=== PATIENT | male | born 1960 | race Caucasian/White ===

== ENCOUNTER → 2016-07-02 | Outpatient (CLI) | payer BC ==
[~2016-07-02] MED LIST: PRLSR20 PO; VNTHFA/IN INH
[2016-07-02 10:52] LABS: BLOOD UREA NITROGEN 14 mg/dl (7-18); BUN/CREATININE RATIO 18.3 (10-20); CALCIUM 8.9 mg/dl (8.5-10.1); CARBON DIOXIDE 27 mmol/L (21-32); CHLORIDE 104 mmol/L (98-107); CHOLESTEROL 189 mg/dl (0-200); CREATININE 0.76 mg/dl (0.60-1.40); GLUCOSE 83 mg/dl (70-99); POTASSIUM 4.6 mmol/L (3.5-5.1); SODIUM 140 mmol/L (136-145)
[2016-07-02 10:57] LABS: CHOLESTEROL/HDL RATIO 1.9; HDL CHOLESTEROL 101 mg/dl; LDL CHOLESTEROL CALCULATED 70 mg/dl; TRIGLYCERIDES 90 mg/dl (0-150); VERY LOW DENSITY LIPOPROT CALC 18 mg/dl
== END | disposition home or self-care (01) ==
LOC: C.LAB1850 09:30
PROVIDERS: ATTEND Internal Medicine
DX: Z13.220 Encounter for screening for lipoid disorders (principal); R73.03 Prediabetes; Z12.5 Encounter for screening for malignant neoplasm of prostate

== ENCOUNTER → 2016-10-28 | Outpatient (CLI) | payer OTHER | END | disposition home or self-care (01) | LOC: C.LAB 22:08 | DX: Z02.83 Encounter for blood-alcohol and blood-drug test (principal) ==

== ENCOUNTER → 2016-11-14 | Outpatient (CLI) | payer BC ==
[2016-11-14 09:49] LABS: CHOLESTEROL/HDL RATIO 1.9; PROSTATE SPECIFIC ANTIGEN 2.7 ng/ml (0.000-4.000)
== END | disposition home or self-care (01) ==
LOC: C.LAB1850 07:44
PROVIDERS: ATTEND Internal Medicine
DX: Z12.5 Encounter for screening for malignant neoplasm of prostate (principal); Z13.220 Encounter for screening for lipoid disorders

== ENCOUNTER → 2016-12-20 | Day surgery (SDC) | payer BC ==
[2016-12-11 07:45] VITALS: Ht 176.5 cm; Wt 59.1 kg
[~2016-12-20] VITALS: Ht 176.5 cm; Wt 59.1 kg
[~2016-12-20] MED LIST changes: +LIDOCAINE HCL 2% 2 ML VIAL (20MG/ML) ONE; +MIDAZOLAM HCL 1 MG/ML 2ML VIAL ONE; +ONDANSETRON INJ 2 MG/ML 2 ML VIAL ONE; -PRLSR20 PO; +PROPOFOL IV EMULSION 10 MG/ML 20 ML VIAL IV ONE; +SODIUM CHLORIDE 0.9% 500ML 500 ML IV ONE
--- NOTE | 2016-12-20 09:41 | Endo History and Physical ---
History & Physical Date of Service: Dec 20, 2016. Chief Complaint: screening,family history of colon cancer Referring Physician: Dr. Cristino Rod History of Present Illness 56 yo CM who presents for colonoscopy secondary to family history of colon cancer. Past Medical History Asthma, Other Past Surgical History Hx Cardiac Surgery: No Hx Internal Defibrillator: No Hx Pacemaker: No Hx Abdominal Surgery: Yes (INGUINAL HERNIA REPAIR) Hx of Implantable Prosthesis: No Hx Post-Op Nausea and Vomiting: No Hx Cancer Surgery: No Hx Thoracic Surgery: No Hx Orthopedic: No Hx Urinary Tract Surgery: No Family History Colon CA Social History Smoking Status: Current Every Day Smoker Hx Substance Use: No Hx Alcohol Use: Yes (6 PACK BEER DAILY) Allergies Coded Allergies: No Known Allergies (Verified , 12/20/16) Current Medications Reported Home Medications Medications Dose Route/Sig Max Daily Dose Days Date Category Ventolin Hfa (Albuterol) 200 Puffs/16682 Mcg Aers 2-4 Puffs INH Q6H PRN 12/11/16 Reported Vital Signs Weight (Kilograms): 59.09 Height (Feet): 5 Height (Inches): 9.5 Date Time Temp Pulse Resp B/P (MAP) Pulse Ox O2 Delivery O2 Flow Rate FiO2 12/20/16 09:35 36.9 92 16 150/91 (110) 99 Room Air Physical Exam General Appearance: WD/WN, no apparent distress Respiratory/Chest: Auscultation: breath sounds normal Cardiovascular: Heart Auscultation: RRR Abdomen: Bowel Sounds: normal Inspection & Palpation: soft, non-distended, no tenderness, guarding & rebound Assessment and Plan Assessment: 56 yo CM who presents for colonoscopy secondary to family history of colon cancer. Plan: Proceed with colonoscopy.
--- NOTE | 2016-12-20 11:02 | Anesthesiology Progress Note ---
Anesthesia Post Op Note Date & Time Dec 20, 2016 at 11:02 Vital Signs Pain Intensity: 0 Vital Signs Past 12 Hours Date Time Temp Pulse Resp B/P (MAP) Pulse Ox O2 Delivery O2 Flow Rate FiO2 12/20/16 09:35 36.9 92 16 150/91 (110) 99 Room Air Notes Mental Status: alert / awake / arousable, participated in evaluation Pt Amnestic to Procedure: Yes Nausea / Vomiting: adequately controlled Pain: adequately controlled Airway Patency, RR, SpO2: stable & adequate BP & HR: stable & adequate Hydration State: stable & adequate Anesthetic Complications: no major complications apparent
--- NOTE | 2016-12-20 11:03 | Discharge Instructions ---
Endoscopy Patient Instructions Date / Procedure(s) Performed Dec 20, 2016. Colonoscopy Allergy Information Coded Allergies: No Known Allergies (Verified , 12/20/16) Discharge Date / Findings Dec 20, 2016. Colon polyp Internal hemorrhoids Medication Instructions OK to resume all medications today as prescribed Reported Home Medications Medications Dose Route/Sig Max Daily Dose Days Date Category Ventolin Hfa (Albuterol) 200 Puffs/70414 Mcg Aers 2-4 Puffs INH Q6H PRN 12/11/16 Reported Provider Instructions Activity Restrictions - No exercising or heavy lifting for 24 hours. - Do not drink alcohol the day of the procedure. - Do not drive a car or operate machinery until the day after the procedure. - Do not make any important decisions or sign important papers in 24 hours after the procedure. Following Day: - Return to full activity which may include returning to work/school. Diet Start your diet with liquids and light foods (jello, soup, juice, toast). Then eat your usual diet if not nauseated. Treatment For Common After Affects For mild abdominal pain, bloating, or excessive gas: - Rest - Eat lightly - Lie on right side Follow-Up Information Follow-up with Dr. Cristino Rod as scheduled Anesthesia Information What You Should Know You have had a procedure that required some medicine to reduce anxiety and discomfort. This treatment is called moderate sedation. After receiving the treatment, you may be sleepy, but you will be able to breathe on your own. The effects of the treatment may last for several hours. Follow these instructions along with Activity/Diet recommendations noted above: * Do NOT do anything where dizziness or clumsiness would be dangerous. * Rest quietly at home today, then you can be up and about tomorrow. * Have a responsible person stay with you the rest of today. * You may have had an I.V. today. If so, you may take the dressing off later today. Recommendations Call your doctor if: * Trouble breathing * Continuous vomiting for more than 24 hours * Temperature above 101 degrees * Severe abdominal pain or bloating * Pain not relieved by pain medicine ordered * There is increased drainage or redness from any incision * A large amount of rectal bleeding greater than 2-3 tablespoons. (If you had a polyp/s removed or have hemorrhoids, a small amount of blood - from the rectum is to be expected.) * You have any unanswered questions or concerns. IN THE EVENT OF A SERIOUS EMERGENCY, GO TO THE NEAREST EMERGENCY ROOM Your discharge instructions were prepared by provider Andrez Arroyo. Patient Instructions Signature Page Gamaliel Vieira Patient (or Guardian) Signature/Date: I have read and understand the instructions given to me by my caregivers. Caregiver/RN/Doctor Signature/Date: The above-named patient and/or guardian has received patient instructions on this date. + Original Patient Signature Page (only) stays with chart. Please make copy for patient.
--- NOTE | 2016-12-20 11:05 | GI REPORT ---
Procedure Date: 12/20/2016 9:58 AM Procedure: Colonoscopy Indications: Family history of colon cancer in a first-degree relative Medicines: Monitored Anesthesia Care Complications: No immediate complications. Estimated Blood Loss: Estimated blood loss: none. Procedure: Pre-Anesthesia Assessment: - Prior to the procedure, a History and Physical was performed, and patient medications and allergies were reviewed. The patient's tolerance of previous anesthesia was also reviewed. The risks and benefits of the procedure and the sedation options and risks were discussed with the patient. All questions were answered, and informed consent was obtained. Prior Anticoagulants: The patient has taken no previous anticoagulant or antiplatelet agents. ASA Grade Assessment: II - A patient with mild systemic disease. After reviewing the risks and benefits, the patient was deemed in satisfactory condition to undergo the procedure. After I obtained informed consent, the scope was passed under direct vision. Throughout the procedure, the patient's blood pressure, pulse, and oxygen saturations were monitored continuously. The Scope was introduced through the anus and advanced to the terminal ileum. The colonoscopy was performed without difficulty. The patient tolerated the procedure well. The quality of the bowel preparation was good. The terminal ileum, ileocecal valve, appendiceal orifice, and rectum were photographed. Findings: The perianal and digital rectal examinations were normal. A 4 mm polyp was found in the ascending colon. The polyp was sessile. The polyp was removed with a cold snare. Resection and retrieval were complete. Multiple small-mouthed diverticula were found in the sigmoid colon. Non-bleeding internal hemorrhoids were found during retroflexion. The hemorrhoids were small. Impression: - One 4 mm polyp in the ascending colon, removed with a cold snare. Resected and retrieved. - Diverticulosis in the sigmoid colon. - Non-bleeding internal hemorrhoids. Recommendation: - Resume previous diet. - Continue present medications. - Repeat colonoscopy for surveillance based on pathology results. - Return to primary care physician as previously scheduled. Andrez Arroyo, DO 12/20/2016 11:05:35 AM This report has been signed electronically. Note Initiated On: 12/20/2016 9:58 AM I attest to the content of the Intraoperative Record and orders documented therein, exceptions below
[2016-12-20 11:26] VITALS: BP 156/96; PULSE 83; O2SAT 100
== END | disposition home or self-care (01) ==
LOC: C.GI 09:09
PROVIDERS: ATTEND Internal Medicine
DX: Z12.11 Encounter for screening for malignant neoplasm of colon (principal); Z80.0 Family history of malignant neoplasm of digestive organs; D12.2 Benign neoplasm of ascending colon; K57.30 Diverticulosis of large intestine without perforation or abscess without bleeding; K64.8 Other hemorrhoids; F17.200 Nicotine dependence, unspecified, uncomplicated; J45.909 Unspecified asthma, uncomplicated; K21.9 Gastro-esophageal reflux disease without esophagitis; H40.9 Unspecified glaucoma

== ENCOUNTER 2019-07-06 05:41 | Observation (INO) ==
--- NOTE | 2019-06-29 14:37 | Anesthesiology Consultation ---
Date of Service June 29, 2019 Assessment & Plan (1) Encounter for pre-operative examination: Heavy ETOH use: 6 pack beer/day at night, patient reports no morning ETOH use/no issue with being NPO AM DOS. Chart Review Chart Review: Acceptable Risk for Surgery and Patient NOT seen in Pre Admission Testing History Surgery Operation Date: 07/06/19 10:50 Proposed Procedures p Laparoscopic Robotic Assisted Radical Retropubic Prostatectomy, Possible Open, Possible Pelvic Lymph Node Dissection, Possible Suprapubic Tube Placement - Dr. López - Steve López MD s Robotic Laparoscopic Assist Right Inguinal Hernia Repair - Dr. Almaguer - Clyde Almaguer MD Height/Weight Height: 5 ft 10 in Weight: 58.06 kg Allergies Allergy/AdvReac Type Severity Reaction Status Date / Time No Known Allergies Allergy Verified 06/29/19 11:49 Medications Home Medications Medication Instructions Recorded Confirmed Last Taken pantoprazole 40 mg PO BID #60 tab 01/27/19 06/29/19 Unknown albuterol sulfate [Ventolin HFA] 2 puffs INH Q6H PRN 05/13/19 06/29/19 Unknown ephedrine-guaifenesin [Primatene 2 tab PO UD PRN 05/13/19 06/29/19 Unknown Asthma] Past Medical History Medical History Acid reflux mild Asthma stable Elevated PSA Esophageal thickening per records Glaucoma Hiatal hernia History of esophageal reflux (Inactive) Past Family History Family History Father Prostate cancer Colorectal cancer Family history of reaction to anesthesia father had stroke during surgery Mother Glaucoma Brother Heart disease Past Surgical History Surgical History History of colonoscopy History of esophagogastroduodenoscopy (EGD) History of left inguinal hernia repair Social History Smoking Status: Current every day smoker tobacco type: cigarettes Smoking cigarettes per day: 1 1/2 pk Do You Dip or Chew Tobacco: No Hx Alcohol Use: Yes Alcohol type: beer alcohol intake frequency: 3 or more drinks per day Alcohol Intake Frequency Comment: 6 pk per day Hx Substance Use: No substance use type: does not use Testing Laboratory Results 05/19/19 WBC: 9.43 H/H: 14.0/41.5 PLATELETS: 373 SODIUM: 137 POTASSIUM: 3.9 CHLORIDE: 105 CO2: 27 BUN: 13 CREATININE: 0.94 GLUCOSE: 96 Electrocardiogram Date: 05/19/19 Findings: + NSR @ (67bpm with short NE) Chest X-Ray Date: 05/19/19 Findings: + NAD
[2019-07-06] MEDS ORDERED: CEFAZOLIN 2000MG 2,000 MG/15 ML SYR IV SCH ×2 (06:00→12:45)
[2019-07-06] MEDS ORDERED: LR 15ML/HR IV SCH (06:00)
[2019-07-06] MEDS ORDERED: SUCCINYLCHOLINE CHLORIDE 20 MG/ML 10 ML VIAL ONE (06:26)
[2019-07-06] MEDS ORDERED: GLYCOPYRROLATE 0.2 MG/ML VIAL ONE (06:26)
[2019-07-06] MEDS ORDERED: ONDANSETRON INJ 2 MG/ML 2 ML VIAL ONE (06:26)
[2019-07-06] MEDS ORDERED: NEOSTIGMINE METHYLSULFATE 5 MG/5 ML SYR ONE (06:26)
[2019-07-06] MEDS ORDERED: LIDOCAINE HCL 2% 2 ML VIAL/AMP(20MG/ML) INFIL ONE (06:26)
[2019-07-06] MEDS ORDERED: fentaNYL citrate 100 MCG/2 ML VIAL ONE ×2 (06:26→08:03)
[2019-07-06] MEDS ORDERED: MIDAZOLAM HCL 1 MG/ML 2ML VIAL ONE (06:26)
[2019-07-06] MEDS ORDERED: ROCURONIUM BROMIDE 10 MG/ML 5 ML VIAL ONE ×7 (06:26→10:57)
[2019-07-06] MEDS ORDERED: PROPOFOL IV EMULSION 10 MG/ML 20 ML VIAL IV ONE (06:26)
--- NOTE | 2019-07-06 06:45 | History & Physical Bridge Note ---
Date of Service July 06, 2019 History & Physical Bridge Note I have examined the patient, reviewed the History & Physical and in the interval since the performance of the History & Physical I have noted the following changes of clinical significance: no changes noted
[2019-07-06] MEDS ORDERED: HYDROmorphone INJ 2 MG/ML SYR/VIAL IV PRN (07:06)
[2019-07-06] MEDS ORDERED: fentaNYL citrate 100 MCG/2 ML VIAL IV PRN (07:06)
[2019-07-06] MEDS ORDERED: ONDANSETRON INJ 2 MG/ML 2 ML VIAL IV PRN ×2 (07:06→12:33)
[2019-07-06] MEDS ORDERED: ATROPINE SULFATE 0.1 MG/ML 10ML SYR IV PRN (07:06)
[2019-07-06] MEDS ORDERED: ePHEDrine sulfate 50 MG/ML AMP IV PRN (07:06)
[2019-07-06] MEDS ORDERED: METOCLOPRAMIDE HCL INJ 5 MG/ML 2 ML VIAL IV PRN (07:06)
[2019-07-06] MEDS ORDERED: PROMETHAZINE HCL 12.5 MG in SODIUM CHLORIDE 0.9% 50 ML IV PRN (07:06)
[2019-07-06] MEDS ORDERED: BUPIVACAINE 0.5 % 5 MG/1 ML MPF 30ML VIAL ONE (07:08)
--- NOTE | 2019-07-06 07:19 | History & Physical Bridge Note ---
Date of Service July 06, 2019 History & Physical Bridge Note I have examined the patient, reviewed the History & Physical and in the interval since the performance of the History & Physical I have noted the following changes of clinical significance: no changes noted Pt with both prostate cancer and a symptomatic inguinal hernia. 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
--- NOTE | 2019-07-06 07:21 | History & Physical Report ---
Date of Service July 06, 2019 Assessment & Plan (1) Prostate cancer: Robotic prostatectomy and concurrent right inguinal hernia with Dr. Almaguer - questions answered (2) Right inguinal hernia: History of Present Illness Primary Care Provider: Cristino Rod MD Gl 4+3 prostate cancer, high volume, localized disease. Symptomatic right inguinal hernia - presenting now for definitive treatment of both the prostate cancer and the hernia Allergies Allergy/AdvReac Type Severity Reaction Status Date / Time No Known Allergies Allergy Verified 07/06/19 06:14 Home Medications Home Medications Medication Instructions Recorded Confirmed Type pantoprazole 40 mg PO BID #60 tab 01/27/19 07/06/19 Rx albuterol sulfate [Ventolin HFA] 2 puffs INH Q6H PRN 05/13/19 07/06/19 History ephedrine-guaifenesin [Primatene 2 tab PO UD PRN 05/13/19 07/06/19 History Asthma] Past Med/Surg History Medical History Acid reflux mild Asthma stable Elevated PSA Esophageal thickening per records Glaucoma Hiatal hernia History of esophageal reflux (Inactive) Surgical History History of colonoscopy History of esophagogastroduodenoscopy (EGD) History of left inguinal hernia repair Family History Father Prostate cancer Colorectal cancer Family history of reaction to anesthesia father had stroke during surgery Mother Glaucoma Brother Heart disease Social History Preferred Language: [place] Citizen Communication Ability: Effective Visual Impairment: No Limitations Hearing Ability: Normal Special Delivery Mail Carrier Required: No Beliefs That Will Affect Care: None marital status: Single Current Living Situation: Alone current occupational status: employed Other Information That Helps Us Care for You: No Feels Safe at Home: Yes Safety Concerns: Feels Safe At This Time Smoking Status: Current every day smoker Tobacco Type: cigarettes ; Cigarettes Per Day: 1 1/2 pk ; Do You Dip or Chew Tobacco: No ; Second Hand Exposure: No ; Tobacco Cessation Education Requested by Patient: No Hx Alcohol Use: Yes Alcohol type: beer Hx Substance Use: No Review of Systems All systems reviewed & are unremarkable except as noted in HPI & below Physical Exam Constitutional: well developed and well nourished Neck: neck nontender Respiratory: normal respiratory effort; no respiratory distress and does not use accessory muscles Cardiovascular: Rate/Rhythm: regular rate Vessels: radial pulses present Extremities: no edema Gastrointestinal (Abdomen): Inspection/Auscultation: abdomen normal to inspection Percussion/Palpation: abdomen soft; abdomen nontender and no guarding large right inguinal hernia Musculoskeletal: Head/Neck/Chest: normocephalic and head atraumatic Extremities: extremities normal to inspection Skin: no rashes and no lesions Trauma: no evidence of skin trauma Neurologic: awake; not obtunded Speech / Cognition: normal speech Motor/Sensory: no tremor Psychiatric: Orientation: alert and oriented x 3 Genitourinary: no CVA tenderness Lymphatic: no lymphadenopathy Results & Data Vital Signs (Past 12 Hours) Vital Signs Temp Pulse Resp BP Pulse Ox 07/06/19 06:17 37 C 75 18 153/96 H 96
[2019-07-06] MEDS ORDERED: HEPARIN SOD 5,000 UNIT/0.5 ML VIAL ONE (07:28)
[2019-07-06] MEDS ORDERED: HEPARIN SOD 5,000 UNIT/0.5 ML VIAL SQ ONE (07:45)
[2019-07-06] MEDS ORDERED: HYDROmorphone INJ 2 MG/ML SYR/VIAL ONE (08:11)
[2019-07-06] MEDS ORDERED: LABETALOL HCL IV 5 MG/ML 20ML IV ONE (09:04)
[2019-07-06] MEDS ORDERED: SURGICEL ABSORB HEMOSTAT 2IN X 14IN TOP ONE (10:18)
[2019-07-06] MEDS ORDERED: FLOSEAL HEMOSTATIC MATRIX 10ML TOP ONE (10:56)
[2019-07-06] MEDS ORDERED: ACETAMINOPHEN 325 MG TAB PO PRN (12:33)
--- NOTE | 2019-07-06 12:36 | Operative Report (OR) ---
DATE OF OPERATION: 07/06/2019 PREOPERATIVE DIAGNOSES: Right inguinal hernia and prostate cancer. POSTOPERATIVE DIAGNOSES: Right direct inguinal hernia and prostate cancer. PROCEDURE: For my part was laparoscopic robotic-assisted repair of right direct inguinal hernia. SURGEON: Clyde Almaguer MD. FINDINGS: The patient had a small to moderate sized direct inguinal hernia. There was a very tiny indirect component. Cord structures were normal. TECHNIQUE: The patient was to undergo a laparoscopic robotic-assisted prostatectomy as well as repair of the inguinal hernia. The patient was given a general anesthetic and the area was prepped and draped. Incisions and placement of the ports as well as docking of the robot was performed by Dr. López and he will dictate that portion. Once the robot was docked, I attended the console. The peritoneum was opened from the medial umbilical ligament working laterally towards the anterior superior iliac spine. I then worked posteriorly on the medial side, identifying the pubic tubercle and working for approximately 2 cm posterior to the pubic tubercle. I then carried the dissection laterally. The direct hernia sac was easily identified and away from the overlying transversalis fascia and was easily reduced around its entire circumference. I then worked laterally identifying the vessels as well as the vas deferens and then worked posteriorly, the vas deferens. The Y between the vas deferens and the vessels was easily identified. I then completed the lateral dissection working anterior to posterior. There were some additional peritoneal attachments over the vessels and the vas deferens that were carried posteriorly until there was adequate dissection and all of the spaces were identified. There was no evidence of a femoral hernia and the direct and indirect hernia spaces were free of hernia. There was no lipoma of the cord. A piece of 3D Max large sized mesh was then placed. It overlapped all of the potential hernia areas. It was secured with a 3-0 Vicryl to the Joseph's ligament and then 2 sites anteriorly, one medial and one lateral. The mesh was sitting nicely. The remainder of the prostatectomy procedure was then completed by Dr. López, and he will dictate that portion of the case. I attest to the content of the Intraoperative Record and any orders documented therein. Any exception s are noted below.
--- NOTE | 2019-07-06 12:54 | Operative Report ---
PG Post Operative Report Pre & Post Diagnosis Operation Date: 07/06/19 07:30 Pre-Op Diagnosis: Right Inguinal Hernia, Prostate Cancer Post-Op Diagnosis: Right Inguinal Hernia, Prostate Cancer I identified the patient and participated in the time-out.: Yes Procedure Operation Date: 07/06/19 07:30 Actual Procedures p Robotic Laparoscopic-Assisted Radical Retropubic Prostatectomy, Pelvic Lymph Node Dissection(Not Applicable) - Steve López MD s Robotic Right Laparoscopic-Assisted Inguinal Hernia Repair with Mesh(Right) - Clyde Almaguer MD Surgeon Boy López MD Mcat Instructor FARZANEH Mariano Estimated Blood Loss 105 (5ml for Rosina, 100ml for Rene) Findings Consistent with Post-Op Diagnosis Specimens 1. Periprostatic fat 2. Left obturator lymph nodes 3. Right obturator lymph nodes 4. Prostate and seminal vesicles Description of Procedure The patient was identified in the preoperative holding area, appropriate informed consents were reviewed and completed, and he was transported to the operating suite. Subcutaneous heparin was administered in the pre-operative holding area. Upon arrival in the operating suite, he received appropriate antibiotics and general anesthesia. He was positioned in dorsal lithotomy and he was prepped and draped in standard fashion. A Bauer catheter was inserted in the sterile field. A Veress needle was passed per umbilicus with uniform insufflation of the abdomen to 15mmHg. He was placed in steep Trendelenburg position. A periumbilical incision was then made to accommodate a 12mm Visiport with 10mm 0degree laparoscope. Inspection of the abdomen was carried out, and there was no evidence of traumatic entry or injury secondary to the Veress needle. After confirming a clear anterior abdominal wall, ports were subsequently placed in standard robotic prostatectomy fashion without incident. After docking the robot Dr. Almaguer joined the case, inspected the right inguinal hernia, incised the overlying peritoneum, and repaired the hernia with mesh. Details of the procedure as dictated by Dr. Almaguer, but there were no complications in the remainder of the case proceeded without difficulty. To begin my portion of the case I completed mobilization of the anterior peritoneum by incising the left medial umbilical ligament and the peritoneum just lateral to it to the medial aspect of the left internal ring. I carried this distally as far as the vas deferens and underneath the pubic arch circumferentially. I then exposed the prostate and endopelvic fascia. I removed the fat from the anterior surface of the prostate and passed off the table as a specimen labeled periprostatic fat. I opened the endopelvic fascia on the right from base to apex. I used care to avoid over thinning the puboprostatic ligaments. I expose the lateral aspect of the urethra in this area and preserved all lateral musculature including the levator and bj- sphincter complex. I performed the same procedure on the left. I then controlled the dorsal venous complex with a V lock suture. The lymph node dissection was then conducted. External iliac vessels were identified on the pelvic side wall. The packet of fat and lymphatic tissue that resides just under the iliac vein was elevated and off of the vein with a split and roll technique. The packet was dissected laterally to the circumflex vein and distally to the obturator nerve which was preserved. The proximal aspect of the packet was carried towards the bifurcation of the iliac vessels. A combination of monopolar and bipolar cautery were used to assist with control. Clips were placed at the proximal and distal aspects of the packet prior to transection. After completing the dissection on both sides, the packets were collected and passed off of the table as specimens labeled "obturator lymph nodes". My attention then returned to the prostate, with identification of the bladder neck aided by gentle traction on the Bauer catheter and lateral to medial pressure at the presumed level of the bladder neck with the robotic instruments. An anterior cystotomy was made, the Bauer balloon deflated and the catheter guided through the incision to allow anterior retraction. I attempted to preserve maximal bladder neck musculature as I circumferentially dissected around the bladder neck. After incision through the posterior aspect of the mucosa, the dissection was carried through detrusor muscle until the bilateral ampullae of the vasa were identified. I dissected both vasa before transecting them and using them to help elevate the SV's which were subsequently dissected entirely. I utilized the SV as an vasa to help anteriorly retract the prostate and create a posterior dissection. I first incised tenotomy's fascia and then carried a posterior dissection through tenotomy's fascia to the apex of the prostate. I began in the midline and carried this laterally until I encountered the neurovascular bundles. An incision in the lateral prostatic fascia was then made bilaterally to facilitate control of the vascular pedicles. The pedicles were each controlled with a series of Weck clips. The neurovascular bundles were preserved bilaterally. Of note, there was no adherence of the neurovascular bundle to the underlying prostatic tissue and an easy dissection was conducted. The apical attachments of the prostate were remaining at that stage. The DVC was divided with bipolar electrocautery. Hemostasis was excellent bj- prostatic tissue incised with sharp dissection and monopolar cautery. Maximal urethral length was preserved before dividing the urethra sharply. The prostate was entirely freed at that point, and collected in an EndoCatch bag before being moved out of the field of vision. A posterior reconstruction was completed utilizing a V lock suture. Hemostasis was confirmed and anastomosis of the bladder and urethra was completed utilizing a double armed V-Lock stitch. A new Bauer catheter was inserted and the anastomosis tested with irrigation. There was no evidence of leak. Before undocking the robot, I covered the previously placed inguinal hernia mesh with the peritoneum by repositioning the peritoneum against the anterior abdominal wall and utilizing a series of V lock sutures in running fashion to reapproximate the peritoneum. This entirely covered this mesh. The robot was undocked, the specimen extracted through expansion of the bj- umbilical camera port. The patient is quite thin and I was able to close all ports with a 0 Vicryl suture as the fascia was readily visible on all sites. This included a series of [id number] sutures placed through the umbilical extraction site. I then reapproximated the skin with 4-0 Monocryl subcuticular stitches. Half percent Marcaine was utilized infiltrated all incisions. Dermabond was placed on top of all incisions. The case was concluded. He was extubated and taken to the PACU in stable condition. There were no complications. Alaina De Jesus assisted throughout the case from incision to closure including the portion with Dr. Almaguer.. The case was concluded and the patient taken to the PACU in stable condition. I attest to the content of the Intraoperative Record and any orders documented therein. Any exceptions are noted below.
[2019-07-06] MEDS ORDERED: MoRPHine SULFATE 2 MG/ML CARP IV PRN ×2 (13:02)
[2019-07-06 13:14] LABS: Basophils # (auto) 0.03 K/uL (0-0.2); Basophils % (auto) 0.3 %; Eosinophils # (auto) 0.11 K/uL (0-0.5); Hemoglobin 14.5 g/dL (14.0-18.0); Immature Granulocytes # (auto) 0.03 K/uL (0.00-0.02); Immature Granulocytes % (auto) 0.3 %; Lymphocytes # (auto) 0.54 K/uL (1.2-3.4); Lymphocytes % (auto) 4.9 %; Mean Corpuscular Hemoglobin 32.2 pg (25-34); Mean Corpuscular Hgb Conc 33.7 g/dL (32-36); Mean Corpuscular Volume 95.6 fL (80-100); Mean Platelet Volume 8.4 fL (7.4-10.4); Monocytes # (auto) 0.72 K/uL (0.11-0.59); Monocytes % (auto) 6.6 %; Neutrophils # (auto) 9.48 K/uL (1.4-6.5); Neutrophils % (auto) 86.9 %; Platelet Count 298 K/uL (130-400); RDW Standard Deviation 45.7 fL (36.4-46.3); White Blood Count 10.91 K/uL (4.8-10.8)
[2019-07-06 13:31] LABS: BUN Creatinine Ratio 10.8 (10-20); Calcium 8.4 mg/dl (8.5-10.1); Creatinine Clr Calc Pharmacy 48.8 ml/min; Est GFR (African American) 68.6; Est GFR (Non-African American) 59.2
[2019-07-06] MEDS ORDERED: ALBUTEROL HFA 8 GM INHALER INH PRN (14:06)
[2019-07-06] MEDS: LACTATED RINGER'S 1,000 ML IV SCH ×2 (14:08→23:44)
--- NOTE | 2019-07-06 14:32 | Anesthesiology Progress Note ---
Date of Service July 06, 2019 Anesthesia Post Procedure Vital Signs Vital Signs: Temp Pulse Pulse Resp BP BP Pulse Ox 07/06/19 14:22 64 16 114/69 97 07/06/19 13:55 36.7 C 72 18 125/77 96 07/06/19 13:40 36.3 C L 68 12 134/78 98 07/06/19 13:30 58 L 12 155/93 H 96 07/06/19 13:20 72 20 157/93 H 94 07/06/19 13:10 59 L 13 148/80 H 100 07/06/19 13:00 75 20 179/106 H 100 07/06/19 12:51 35.8 C L 82 20 172/109 H 93 07/06/19 06:17 37 C 75 18 153/96 H 96 Pain Intensity Abdomen: Pain Intensity: 4 Transfer of Care Handoff Completed per policy Notes Mental Status: alert / awake / arousable and participated in evaluation Patient Amnestic to Procedure: Yes Nausea / Vomiting: adequately controlled Pain: adequately controlled Airway Patency, RR, SpO2: stable & adequate BP & HR: stable & adequate Hydration State: stable & adequate Anesthetic Complications: no major complications apparent
[2019-07-06] MEDS: CEFAZOLIN 2000MG 2,000 MG/15 ML SYR IV SCH ×2 (15:43→23:44)
[2019-07-06] MEDS: PANTOprazole 40 MG TAB PO SCH (20:15)
[2019-07-06] MEDS: HEPARIN SOD 5,000 UNIT/0.5 ML VIAL SQ SCH (20:23)
[2019-07-07 06:00] LABS: Basophils # (auto) 0.03 K/uL (0-0.2); Basophils % (auto) 0.3 %; Eosinophils # (auto) 0.06 K/uL (0-0.5); Eosinophils % (auto) 0.7 %; Hematocrit (blood only) 36.8 % (42-52); Hemoglobin 12.4 g/dL (14.0-18.0); Immature Granulocytes # (auto) 0.01 K/uL (0.00-0.02); Immature Granulocytes % (auto) 0.1 %; Lymphocytes # (auto) 1.07 K/uL (1.2-3.4); Lymphocytes % (auto) 11.7 %; Mean Corpuscular Hemoglobin 31.8 pg (25-34); Mean Corpuscular Hgb Conc 33.7 g/dL (32-36); Mean Corpuscular Volume 94.4 fL (80-100); Mean Platelet Volume 8.5 fL (7.4-10.4); Monocytes # (auto) 0.96 K/uL (0.11-0.59); Monocytes % (auto) 10.5 %; Neutrophils # (auto) 7.02 K/uL (1.4-6.5); Neutrophils % (auto) 76.7 %; Platelet Count 304 K/uL (130-400); RDW Standard Deviation 44.4 fL (36.4-46.3); White Blood Count 9.15 K/uL (4.8-10.8)
[2019-07-07] MEDS: LACTATED RINGER'S 1,000 ML IV SCH ×4 (06:26→23:46)
[2019-07-07 06:33] LABS: BUN Creatinine Ratio 12.2 (10-20); Calcium 8.6 mg/dl (8.5-10.1); Creatinine Clr Calc Pharmacy 57.6 ml/min; Est GFR (African American) 83.8; Est GFR (Non-African American) 72.3; Potassium 4.9 mmol/L (3.5-5.1)
[2019-07-07] MEDS: HYDROCODONE/ACETAMOPHEN 5/325MG TAB PO PRN ×2 (06:36→11:58)
[2019-07-07] MEDS: PANTOprazole 40 MG TAB PO SCH ×2 (08:36→21:02)
[2019-07-07] MEDS: HEPARIN SOD 5,000 UNIT/0.5 ML VIAL SQ SCH ×2 (08:36→21:03)
--- NOTE | 2019-07-07 09:50 | Urology Progress Note ---
Date of Service July 07, 2019 Assessment & Plan (1) Prostate cancer: Postop day #1 status post robotic prostatectomy and robotic right inguinal hernia repair Progressing appropriately Continue ambulation Hold on clear liquids for now advance later today or tomorrow He lives alone and is concerned about self-care after discharge, I have reassured him that we will keep an eye on him throughout the day today continue to monitor his labs, urine output, overall status before determining discharge homelikely tomorrow Subjective Recovering appropriately from his prostatectomy and right inguinal hernia repair yesterday He has been ambulatory His pain is tolerable His urine has cleared He feels well overall Review of Systems Review of Systems: All systems reviewed & are unremarkable except as noted in HPI & below Physical Exam Physical Exam: Incisions appropriate Urine clear No lower extremity edema No oxygen requirement Results & Data Vital Signs (Past 12 Hours) Vital Signs Temp Pulse Resp BP Pulse Ox 07/07/19 07:16 37.0 C 72 16 118/68 90 07/07/19 03:27 37.1 C 70 16 134/71 96 07/06/19 22:52 37.0 C 74 16 122/68 94 PG Care Time/CCT Total # of Minutes Spent Total Time Spent with Patient: Total time spent is greater than 50% in coordination of care (as documented) at patient's floor/unit and/or counseling patient: Coding Level of Care Code 09207 Subseq Hosp Care Lvl 2 Diagnoses Prostate cancer C61
[2019-07-07] MEDS: KETOROLAC TROMETHAMINE 15 MG/ML VIAL IV PRN ×2 (16:30→23:41)
[2019-07-08] MEDS: KETOROLAC TROMETHAMINE 15 MG/ML VIAL IV PRN (06:17)
--- NOTE | 2019-07-08 08:02 | Urology Progress Note ---
Date of Service July 08, 2019 Assessment & Plan (1) Prostate cancer: POD#2 s/p RALP and Robotic R inguinal hernia repair - doing well - advance diet - hopeful for d/c home later today if he continues to progress Subjective doing well tolerating clear liquids no nausea appropriate, expected pain ambulating Physical Exam Physical Exam: incisions appropriate ecchymosis over the pubic area - mild edema in the right inguinal region. urine clear Results & Data Vital Signs (Past 12 Hours) Vital Signs Temp Pulse Resp BP Pulse Ox 07/08/19 07:28 36.6 C 70 16 153/76 H 94 07/07/19 23:35 37.0 C 79 16 150/77 H 91 PG Care Time/CCT Total # of Minutes Spent Total Time Spent with Patient: Total time spent is greater than 50% in coordination of care (as documented) at patient's floor/unit and/or counseling patient: Coding Level of Care Code 16767 Subseq Hosp Care Lvl 2 Diagnoses Prostate cancer C61
[2019-07-08] MEDS: LACTATED RINGER'S 1,000 ML IV SCH ×2 (08:48→15:15)
[2019-07-08] MEDS: PANTOprazole 40 MG TAB PO SCH (08:49)
[2019-07-08] MEDS: HEPARIN SOD 5,000 UNIT/0.5 ML VIAL SQ SCH (08:49)
[2019-07-08] MEDS: HYDROCODONE/ACETAMOPHEN 5/325MG TAB PO PRN ×2 (11:13→15:19)
--- NOTE | 2019-07-11 09:07 | Discharge Summary ---
Date of Service July 11, 2019 Admission HPI Per Admitting Provider Gl 4+3 prostate cancer, high volume, localized disease. Symptomatic right inguinal hernia - presenting now for definitive treatment of both the prostate cancer and the hernia Principal Diagnosis Prostate cancer Discharge Data Allergies Allergy/AdvReac Type Severity Reaction Status Date / Time No Known Allergies Allergy Verified 07/06/19 06:14 Procedures Performed Operation Date: 07/06/19 07:30 Actual Procedures p Robotic Laparoscopic-Assisted Radical Retropubic Prostatectomy, Pelvic Lymph Node Dissection(Not Applicable) - Steve López MD s Robotic Right Laparoscopic-Assisted Inguinal Hernia Repair with Mesh(Right) - Clyde Almaguer MD Hospital Course (1) Prostate cancer: Patient admitted for a robotic prostatectomy - details of the procedure as dictated previously in my operative report - in summary, he tolerated the procedure very well - he was in stable condition overnight with appropriate urine output and stable labs -He lives by himself and was somewhat hesitant about discharge home and continued to remain on a clear liquid dietin turn we elected to keep him for a second night - he was subsequently discharged home with a scherer catheter - he was in stable condition at the time of discharge Total Time Total Time Spent Total Time Spent (In Minutes): 15 Total Time Includes: Examination of the Patient and Discharge Planning Discharge Plan Discharge Items Patient Disposition: Home - Self-Care Reason For Visit: RIGHT INGUINAL HERNIA, PROSTATE CANCER Discharge Diagnosis: Right inguinal hernia, prostate cancer Activity: Per Instructions section Lifting: No more than 25 pounds Bathing Comment: Okay to shower 1 day after discharge, no tub bath/soaking until follow-up Sexual Activity: Wait until after follow-up appointment Exercise/Sports: Wait until after follow-up appointment Driving/Machine Use: Okay to resume 1 day after discharge, no driving while taking prescription pain medication Non-emergency contact: Surgeon and Urologist Call non-emergency contact if: your symptoms worsen, your pain is not controlled, your pain is worsening, you have a fever, your temperature is above 101, your wound has increased redness, your wound has increased drainage and your wound pain has increased Follow-up/Referrals: ProCristino MD [Primary Care Provider] - Steve López MD [Physician] - 07/27/19 9:30 am [facility],RN [Physician] - 07/13/19 1:00 pm Diet: Regular Addtl Attending Provider Instructions: Please take all medications as prescribed and keep all follow-ups as scheduled. Please call our office at [phone] with any questions, concerns or need to reschedule appointments for any reason. We are happy to assist you. We have sent an antibiotic to your pharmacy of choice. Please begin antibiotic as prescribed the day BEFORE your scheduled voiding trial [place] [facility]. Please continue antibiotic every 12 hours through the day AFTER your voiding trial. Activity: We recommend having someone with you for the first few days after surgery to help care for you. For the first 2 weeks after surgery, we would like you to get up and walk around your house. However, we recommend limit physical activity that would increase your heart rate. This will allow your body to rest and heal. Take naps if you feel tired. Don't lift anything heavier than 10 pounds, mow the law or ride a bicycle until your follow-up appointment. Please avoid long car rides. Home Care: Unless directed otherwise, drink 6 to 8 glasses of water a day (enough to keep your urine light colored). This will also help keep a healthy flow of urine. We recommend using a stool softener for the first two weeks to avoid constipation. Scherer Catheter or Suprapubic Catheter care: Keep the catheter well secured with either a leg back or leg strap with large bag. Empty your bag when it's about half full. You may notice some blood in the bag. This is normal after surgery and while the catheter is in place. Use mild soap (such as Dove or Dial) and water to wash the catheter and the head of your penis daily, or more frequently if needed. Return to your normal diet, we encourage good protein intake to promote healing. You may shower as normal. Please avoid tub baths or soaking until catheter removed and incisions well healed. Wearing sweat pants while you have the catheter is recommended, they will be more comfortable. Follow-up Your follow up appointments for having your catheter removed, and follow up with your physician should already be scheduled. If you have any questions regarding this, please contact our office. Your final pathology report will be discussed at your physician follow-up appointment. Call [facility] at [phone] right away if you have any of the following: Chest pain or trouble breathing (call 911 or go to the hospital) Fever of 101F or higher, uncontrolled vomiting Heavy bleeding, clots, or bright red blood from the catheter Catheter that falls out or stops draining Foul-smelling discharge from your catheter Redness, swelling, warmth, or increased pain at your incision site Drainage, pus, or bleeding from your incision Pending Studies at Discharge: Yes Studies:: Pathology Stand-Alone Forms: [facility], Smoking Cessation Medications and DC Order Prescriptions: New oxycodone-acetaminophen [Percocet] 5-325 mg tablet 1 tab PO TID PRN (Reason: pain) Qty: 14 RF: 0 docusate sodium [Colace] 100 mg capsule 100 mg PO BID Qty: 60 RF: 0 Continued pantoprazole 40 mg tablet,delayed release (DR/EC) 40 mg PO BID Qty: 60 RF: 5 albuterol sulfate [Ventolin HFA] 90 mcg/actuation HFA aerosol inhaler 2 puffs INH Q6H PRN (Reason: ASTHMA) RF: 0 Primatene Asthma 12.5-200 mg Tablet 2 tab PO UD PRN (Reason: ASTHMA) RF: 0 Discharge Orders: Discharge Order (Routine); Ordered 07/08/19 Ordered By: Steve Black/Other Patient Handouts: Emptying and Cleaning Your Urinary Catheter Bag Admission Data Admit Date/Time: 07/06/19 12:33 Attending Provider: Steve López Admit Provider: Steve López Primary Care Provider: Cristino Rod Other Interventions: Discharge Summary Assessment (RN) Last Done: 07/08/19 16:57 DC Date/Time DO NOT enter until pt leaves facility: 07/08/19 18:15 Coding Level of Care Code D/C Day Management <30 mins Diagnoses Prostate cancer C61
== END 2019-07-08 18:15 | disposition home or self-care (01) ==
LOC: ASU 05:41 → 3E 12:33 → INTOOBSV 12:33

== ENCOUNTER 2024-04-28 07:43 | Inpatient (IN) ==
--- NOTE | 2024-04-07 11:48 | Anesthesiology Consultation ---
Date of Service April 07, 2024 Assessment & Plan (1) Encounter for pre-operative examination: Chart Review Chart Review: Acceptable Risk for Surgery and Patient NOT seen in Pre Admission Testing Per PAT nursing assessment, >3 beers daily -Infectious Disease screening: Per PAT nursing assessment on 04/07/24. No known infectious disease contacts in past 10 days or current infectious disease symptoms. No recent travel outside the country. Laparoscopic robotic prostatectomy/lap robotic right inguinal hernia repair 07/06/19= Done under [place] with Grade 1 view with Glidescope #4. ETT #8.0. History Surgery Operation Date: 04/20/24 10:20 Proposed Procedures p Right Transcarotid Artery Revascularization - Sandro Moreno MD Height/Weight Height: 5 ft 10 in Weight: 57.153 kg Allergies Allergy/AdvReac Type Severity Reaction Status Date / Time No Known Allergies Allergy Verified 04/07/24 10:48 Medications Home Medications Medication Instructions Recorded Confirmed Last Taken guaifenesin 600 mg tablet, 600 mg PO Q12H PRN Congestion, 08/13/22 04/07/24 Unknown extended release 12 hr (Mucinex) Cough sildenafil 50 mg tablet 50 mg PO DAILY PRN sexual activity 02/19/24 04/07/24 Unknown #10 tabs albuterol sulfate 90 mcg/actuation 1 inh inhalation QID PRN Shortness 04/07/24 04/07/24 Unknown aerosol inhaler of Breath and Wheezing aspirin 81 mg tablet 81 mg PO HS 04/07/24 04/07/24 Unknown atorvastatin 10 mg tablet (Lipitor) 10 mg PO HS 04/07/24 04/07/24 Unknown clopidogrel 75 mg tablet (Plavix) 75 mg PO HS 04/07/24 04/07/24 Unknown Past Medical History Medical History (Updated 04/07/24 @ 11:40 by Cara Watson PA-C) Acid reflux mild- no recent issues Asthma stable-inh prn Carotid artery stenosis Soft Tissue Neck CT 03/10/24 [facility]= Severe (80%) stenosis of the proximal right internal carotid artery due to calcified atherosclerotic plaque. Mild plaque within the proximal left internal carotid artery without significant stenosis. Esophageal thickening pt denies - per records Glaucoma not currently dx'd - being monitored twice a year d/t family history Hiatal hernia pt denies History of prostate cancer 2019 - surgery only - no chemo/xrt Prediabetes Past Family History Family History Father Prostate cancer Colorectal cancer Family history of reaction to anesthesia father had stroke during surgery Mother Glaucoma Brother Heart disease Denies family history of Ovarian cancer Myocardial infarction Breast cancer Past Surgical History Surgical History History of colonoscopy (2021) History of esophagogastroduodenoscopy (EGD) (2018) History of left inguinal hernia repair Hx of prostatectomy (2019) robotic removal w/ rt inguinal hernia repair Social History Smoking Status: Current every day smoker tobacco type: cigarettes Smoking cigarettes per day: 1 1/2 pack Do You Dip or Chew Tobacco: No Hx Alcohol Use: Yes Alcohol type: beer alcohol intake frequency: 3 or more drinks per day Hx Substance Use: No substance use type: does not use Lab Results Anesthesia Preop Results Results Anesthesia Widget: WBC 6.55 K/ul (4.8-10.8) 04/01/24 Hgb 13.6 g/dl (14.0-18.0) L 04/01/24 Hct 39.9 % (42.0-52.0) L 04/01/24 Plt 342 K/uL (130-400) 04/01/24 Na 137 mmol/L (136-145) 04/01/24 K 4.3 mmol/L (3.5-5.1) 04/01/24 Cl 101 mmol/L (98-107) 04/01/24 CO2 29 mmol/L (21-32) 04/01/24 BUN 15 mg/dl (6-23) 04/01/24 Creat 0.82 mg/dl (0.6-1.4) 04/01/24 Glucose Level 99 mg/dl (70-99(Fasting)) 04/01/24 PT 10.8 Seconds (9.0-12.0) 04/01/24 PTT 27 Seconds (21-31) 04/01/24 INR 1.0 (0.9-1.1) 04/01/24 HA1c 5.8 % (4.5-5.6) H 03/10/24 Blood Type O Positive 04/01/24 Antibody Screen NEGATIVE 04/01/24 Testing Electrocardiogram Date: 04/01/24 Findings: + NSR @ (70bpm ) Normal EKG per cardio Chest X-Ray Date: 04/01/24 Findings: + NAD Other Testing Soft Tissue Neck CT 03/10/24= Severe (80%) stenosis of the proximal right internal carotid artery due to calcified atherosclerotic plaque. Mild plaque within the proximal left internal carotid artery without significant stenosis. No mucosal lesions within the neck. No cervical lymphadenopathy. No acute process within the neck. Low Dose Lung CT 01/23/24= No suspicious pulmonary nodules. No change in appearance of the chest. No change in multiple small pulmonary nodules from earlier exams. These are likely benign.
--- NOTE | 2024-04-27 10:45 | History & Physical Report ---
Date of Service April 27, 2024 History of Present Illness Primary Care Provider: Cristino Rod MD Name: REBECA VIEIRA Patient Number: [id number] : 1960 Date of Service: 04/01/2024 Chief Complaint: _consultation for carotid stenosis HPI: _Mr. Vieira is a middle-age male presents to Dr. Moreno's vascular surgery clinic today as a new patient in consultation for right ICA stenosis that was noted on recent imaging. Patient states that he had been complaining of some left-sided neck pain, and his primary doctor sent him for CT imaging of the neck to evaluate and found a narrowing in his right ICA. Patient denies any symptoms of cerebrovascular deficiency including amaurosis, unilateral extremity weakness numbness tingling, difficulty speaking or swallowing, facial droop, sudden onset confusion. He also denies headache, fever, chest pain, shortness of breath, abdominal pain, nausea, vomiting, rest pain, claudication, nonhealing wounds or ulcerations, other complaints. Review of symptoms: A total of 14 systems were reviewed and are negative aside from what is related in his HPI Imaging: Patient did have a CT of the neck with and without contrast which does demonstrate about 95% stenosis of his right ICA Current Home Meds: (Last Updated 04/01 12:38) aspirin (aspirin 81 mg oral delayed release tablet) 81 mg PO Daily atorvastatin (atorvastatin 10 mg oral tablet) TAKE 1 TABLET BY MOUTH ONCE DAILY clopidogrel (Plavix 75 mg oral tablet) 75 mg PO Daily sildenafil (sildenafil 50 mg oral tablet) TAKE 1 TABLET BY MOUTH DAILY NEEDED FOR SEXUAL ACTIVITY Allergies and Sensitivities: NKA Past Medical History: Problems: Carotid stenosis, right Tobacco user Anemia Inguinal hernia Prostate cancer Internal hemorrhoids Diverticulosis Allergic rhinitis Alcohol abuse Surgical history positive for a prostatectomy, left inguinal hernia repair, EGD, colonoscopy Family history: Positive for prostate and colorectal cancer in his father, positive for glaucoma in his mother, positive for coronary disease in his brother Social history: Patient is a current smoker, smoking 1.5 packs/day since the age of 19. He drinks 6 beers per day. He denies any illicit drug use. OBJECTIVE Vitals: Last Updated 04/01/24 12:10 Date Temp BP Location Pulse RR SpO2 Pain 04/01/24 164/80 Right Arm 04/01/24 160/84 Left Arm 75 98 04/01/24 0 Vital Signs are the last 3 documented. No Orthostatic Data Available No Height/Weight Data Available Physical Exam Constitutional: In general patient is a healthy-appearing well-nourished well- developed middle-age male no distress. Is alert and oriented and able deficits. Head is cephalic and atraumatic. Trachea is midline. Carotids no demonstrated bruit. Heart is regular, lungs are decreased lightly but clear. Abdomen is soft nontender with erected bowel sounds in upper quadrants. Radial and brachial pulses are +3. Femoral pulses are +3. Lower extremity distal pulses are +2. He has brisk capillary refill and no sign of distal ischemia. ASSESSMENT: _ PLAN: _ 1 ) _right ICA stenosis Patient does appear to have a severe asymptomatic right ICA stenosis noted on recent imaging. Due to the severity of his stenosis and significant risk of CVA, we did recommend that the patient consider undergoing surgical intervention. The options of carotid endarterectomy versus transcarotid artery revascularization were discussed at length with the patient by myself. Patient elects to proceed with a right TCAR procedure. The procedure, benefits, alternatives were discussed with the patient by myself. The risks of the surgery including but not limited to bleeding, infection, nerve damage, CVA, heart attack, , were discussed with the patient by myself at Dr. Moreno's request. Patient expresses understanding and agreement to proceed. Patient is already taking atorvastatin and 81 mg aspirin daily, we will add Plavix to his regimen in preparation for his upcoming procedure. He is aware that he will require this for at least 1 year postoperatively. He was advised to call any questions or concerns. This will be scheduled in the next few weeks at the patient's convenience. Thank you for letting us participate in the care of this patient. I have personally spent_50__ minutes performing [id number] and rwy-[id number] activities on this date of service.Time does not include separately reported services. Activities Include: x__ review of the medical record _x_ obtaining a history _x_ physical exam/evaluation __ review labs _x_ review radiology reports x__ counseling/educating patient/family/caregiver __ discussion/referral to other healthcare professional _x_ documenting care in the medical record __ independent interpretation of results x__ communication of results to patient/family/caregiver x__ coordination of care Signature Line Electronic Signature on File CC: Cristino Rod MD [facility] [address] [facility] [id number] * Electronically Reviewed/Signed by: Jazmin Em PA-C Author Signature Dt/Tm:04/01/2024 04:24 PM [facility], [address] [place]. [address] [place] Result Type: HVI Outpt Note Date of Service: April 01, 2024 16:14 EST Authorization Status: Final Author or Import Date: ANISHA Em Lynn on April 01, 2024 16:24 EST Verified By: ANISHA Em Lynn on April 01, 2024 16:24 EST Encounter info: [id number], [facility], Clinic, 04/01/2024 - 04/01/2024 Allergies Allergy/AdvReac Type Severity Reaction Status Date / Time No Known Allergies Allergy Verified 04/07/24 10:48 Home Medications Medication Instructions Recorded Confirmed Type guaifenesin 600 mg tablet, 600 mg PO Q12H PRN Congestion, 08/13/22 04/07/24 History extended release 12 hr (Mucinex) Cough sildenafil 50 mg tablet 50 mg PO DAILY PRN sexual activity 02/19/24 04/07/24 Rx #10 tabs aspirin 81 mg tablet 81 mg PO HS 04/07/24 04/07/24 History atorvastatin 10 mg tablet (Lipitor) 10 mg PO HS 04/07/24 04/07/24 History clopidogrel 75 mg tablet (Plavix) 75 mg PO HS 04/07/24 04/07/24 History albuterol sulfate 90 mcg/actuation 1 inh inhalation QID PRN Shortness 04/22/24 Rx aerosol inhaler of Breath and Wheezing #6.7 grams Past Med/Surg History Problem List (Updated 04/07/24 @ 11:40 by Cara Watson PA-C) History of adenomatous polyp of colon Encounter for pre-operative examination Alcohol abuse (Acute) Allergic rhinitis (Acute) Diverticulosis (Acute) Internal hemorrhoids (Acute) Pre-diabetes (Acute) Prostate cancer Esophagitis Right inguinal hernia (Chronic) Tobacco abuse Medical History (Updated 04/07/24 @ 11:40 by Cara Watson PA-C) Carotid artery stenosis Soft Tissue Neck CT 03/10/24 [facility]= Severe (80%) stenosis of the proximal right internal carotid artery due to calcified atherosclerotic plaque. Mild plaque within the proximal left internal carotid artery without significant stenosis. Prediabetes History of prostate cancer 2019 - surgery only - no chemo/xrt Glaucoma not currently dx'd - being monitored twice a year d/t family history Hiatal hernia pt denies Acid reflux mild- no recent issues Asthma stable-inh prn Esophageal thickening pt denies - per records Surgical History Hx of prostatectomy (2019) robotic removal w/ rt inguinal hernia repair History of left inguinal hernia repair History of esophagogastroduodenoscopy (EGD) (2018) History of colonoscopy (2021) Family History Father Prostate cancer Colorectal cancer Family history of reaction to anesthesia father had stroke during surgery Mother Glaucoma Brother Heart disease Denies family history of Ovarian cancer Myocardial infarction Breast cancer Social History Smoking Status: Current every day smoker Tobacco Type: Cigarettes Age Started Using Tobacco: 19; packs per day: 1; Cigarettes Per Day: 1 1/2 pack; Second Hand Exposure: No; Do You Dip or Chew Tobacco: No; Tobacco Cessation Education Requested by Patient: No Hx Alcohol Use: Yes Alcohol type: beer Hx Substance Use: No Preferred Language: Filipino Communication Ability: Effective Visual Impairment: No Limitations Hearing Ability: Normal Finished Metal Repairer Required: No Beliefs That Will Affect Care: None marital status: Single Current Living Situation: Alone current occupational status: employed current occupation: [employer] Other Information That Helps Us Care for You: No Feels Safe at Home: Yes Safety Concerns: Feels Safe At This Time Childhood Exposure to Second-Hand Smoke: Yes Dental Care, Regularly: Yes Physical Activity Frequency: Daily Seatbelt Use: always Sunscreen Use: No Assistive Devices: Glasses
[~2024-04-28 07:43] MED LIST changes: +LACTATED RINGER'S 1,000 ML IV SCH; -LIDOCAINE HCL 2% 2 ML VIAL (20MG/ML) ONE; -MIDAZOLAM HCL 1 MG/ML 2ML VIAL ONE; -ONDANSETRON INJ 2 MG/ML 2 ML VIAL ONE; -PROPOFOL IV EMULSION 10 MG/ML 20 ML VIAL IV ONE; -SODIUM CHLORIDE 0.9% 500ML 500 ML IV ONE; -VNTHFA/IN INH; +ceFAZolin 2000MG 2,000 MG/15 ML SYR IV SCH
[2024-04-28] MEDS ORDERED: PHENYLEPHRINE HCL 25 MG/250 ML NSS IV ONE (08:28)
[2024-04-28] MEDS ORDERED: LIDOCAINE 2% 2 ML VIAL/AMP(20MG/ML) INFIL ONE ×2 (08:29)
[2024-04-28] MEDS ORDERED: PROPOFOL IV EMULSION 10 MG/ML 20 ML VIAL IV ONE (08:30)
[2024-04-28] MEDS ORDERED: ROCURONIUM BROMIDE 10 MG/ML 5 ML VIAL IV ONE ×2 (08:30→09:39)
[2024-04-28] MEDS ORDERED: fentaNYL citrate PF 100 MCG/2 ML VIAL ONE (08:31)
[2024-04-28] MEDS ORDERED: MIDAZOLAM HCL 1 MG/ML 2ML VIAL ONE (08:31)
[2024-04-28] MEDS ORDERED: GLYCOPYRROLATE 0.2 MG/ML VIAL ONE (08:55)
[2024-04-28] MEDS ORDERED: HEPARIN SOD (PORCINE) 1000 UNIT/ML ONE (08:57)
[2024-04-28] MEDS ORDERED: PROTAMINE SULFATE 10 MG/ML 5 ML VIAL IV ONE (08:57)
[2024-04-28] MEDS ORDERED: ONDANSETRON INJ 2 MG/ML 2 ML VIAL ONE (08:59)
[2024-04-28] MEDS ORDERED: DEXAMETHASONE SOD INJ 4 MG/ML VIAL ONE (09:00)
[2024-04-28] MEDS: LACTATED RINGER'S 1,000 ML IV SCH ×2 (09:15→14:07)
[2024-04-28] MEDS ORDERED: EPINEPHrine INJ 1 MG/ML AMP ONE (09:35)
[2024-04-28] MEDS ORDERED: SUGAMMADEX SODIUM 200 MG/2 ML VIAL IV ONE (09:40)
--- NOTE | 2024-04-28 09:47 | History & Physical Bridge Note ---
Date of Service April 28, 2024 History & Physical Bridge Note I have examined the patient, reviewed the History & Physical and in the interval since the performance of the History & Physical I have noted the following changes of clinical significance: no changes noted
[2024-04-28] MEDS ORDERED: fentaNYL citrate PF 100 MCG/2 ML VIAL IV PRN (10:15)
[2024-04-28] MEDS ORDERED: ePHEDrine sulfate 50 MG/ML AMP IV PRN (10:15)
[2024-04-28] MEDS ORDERED: ATROPINE SULFATE 0.1 MG/ML 10ML SYR IV PRN (10:15)
[2024-04-28] MEDS ORDERED: LABETALOL HCL IV 5 MG/ML 20ML IV PRN (10:15)
[2024-04-28] MEDS ORDERED: PROMETHAZINE HCL 6.25 MG in SODIUM CHLORIDE 0.9% 50 ML IV PRN (10:15)
--- OUTSIDE RECORDS SUMMARY | 2024-04-28 10:45 | External Medical Summary | Continuity of Care Document ---
Author Name Unknown Organization [facility] [address] Address [address] [place], [place] [id number] Care Team Providers Care Plant Health Manager Name Role Phone Riley Ramirez Primary Care Physician [phone] Encounter [facility] [id number] Date(s): 04/13/24 - 04/13/24 [facility] [address] [facility] 1 [facility] [address], [facility] 1 [place], [place] [phone] Encounter Diagnosis Occlusion and stenosis of right carotid artery(Final) - Discharge Disposition: Home or Self Care Attending Physician: ANISHA Em Lynn Referring Physician: ANISHA Em Lynn Encounter Type: Clinic Allergies, Adverse Reactions, Alerts No Known Allergies Medications aspirin 81 mg oral delayed release tablet Start: 04/01/24 12:38:00 PM EST, 1 tab, PO, Daily Start Date: 04/01/24 Status: Ordered Repeat number: 1 atorvastatin 10 mg oral tablet TAKE 1 TABLET BY MOUTH ONCE DAILY Start Date: 04/01/24 Status: Ordered Repeat number: 1 Plavix 75 mg oral tablet Start: 04/01/24 12:37:00 PM EST, 1 tab, PO, Daily, Disp# 30 tab, Refills: 11, Pharmacy: [id number] Start Date: 04/01/24 Status: Ordered Quantity: 30.0 Unit: tab Repeat number: 12 Indication: Occlusion and stenosis of right carotid artery sildenafil 50 mg oral tablet TAKE 1 TABLET BY MOUTH DAILY NEEDED FOR SEXUAL ACTIVITY Start Date: 04/01/24 Status: Ordered Repeat number: 1 Problem List Condition Confirmation Course Effective Dates Status Health atus Informant Carotid stenosis, right Confirmed Active Tobacco user Confirmed Active Results Laboratory List Name Date Platelet Function (P2Y12 Receptor) (PLT FUNCTION P2Y12) 04/13/24 Most recent to oldest [Reference Range]: 1 P2Y12 Platelet Function [194-418 PRU] 10 0 PRU 1 *LOW* (04/13/24 12:12 PM) 1Result Comment: PRU reference range is 194-418 (healthy adults, no drug treatment). Post Drug Results: Lower PRU levels are expected following treatment with antiplatelet drugs. Post-treatment values are usually below the stated reference range above. The post-drug PRU values reported in the Ver[employer]NOW P2Y12 package insert are 18-435. This broader range reflects the variability in drug response and is consistent with significant numbers of patients with decreased sensitivity to P2Y12 receptor antagonists (prasugrel or clopidogrel). Clinical studies suggest an on-treatment PRU>230 indicates less than optimal response to therapy, and PRU<208 at 12-24 hours after percutaneous intervention or during follow-up is associated with a lower risk of cardiovascular events (1). (1).Standard-vs high-dose clopidogrel based on platelet function testing after percutaneouscoronary intervention: the GRAVITAS randomized trial. Brett et al. EMILY. 2010May 16; 305(11): 3285-8247. 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
[2024-04-28] MEDS: ceFAZolin 2000MG 2,000 MG/15 ML SYR IV SCH ×2 (10:47→19:21)
[2024-04-28] MEDS: ceFAZolin 330 MG/ML 1 GM VIAL ONE (11:39)
[2024-04-28] MEDS: VISIPAQUE IV ONE (11:40)
[2024-04-28] MEDS: THROMBIN 5000 UNITS KIT TOP ONE (11:43)
--- NOTE | 2024-04-28 11:43 | Procedure Note ---
Angiogram Post Procedure Fluoroscopy Time (minutes): 2.4 Radiation (mGy): 18 Contrast: 9 Post Operative Report Pre & Post Diagnosis Operation Date: 04/28/24 10:10 Pre-Op Diagnosis: Right Iliac Carotid Artery Stenosis Post-Op Diagnosis: Right Iliac Carotid Artery Stenosis I identified the patient and participated in the time-out.: Yes Procedure Operation Date: 04/28/24 10:10 Actual Procedures p Right Transcarotid Artery Revascularization(Right), Ultrasound localization of left common femoral vein - Sandro Moreno MD Surgeon Sandro Moreno MD Cell Feed Department Supervisor Robin,PAC Estimated Blood Loss 10 Findings Consistent with Post-Op Diagnosis Specimens none Anesthesia Type General Complications none Disposition Accompanied Patient To Recovery: No Disposition: Recovery Room Indications Is a 63-year-old gentleman was found to have a severe right internal carotid artery stenosis. Intervention was recommended. We discussed endarterectomy versus TCAR. He elected to go with TCAR procedure. I have discussed the risks options and benefits of the procedure with the patient. The patient understands the risks options and benefits and agrees to the procedure. Description of Procedure The patient was taken to the operating room and placed in supine position. After general anesthesia was accomplished the groins and right side of the neck and chest were prepped and draped in a sterile manner. Timeout was performed and the patient was identified. A transverse incision was made just above the clavicle between the heads of the sternocleidomastoid. This was carried down to where the common carotid artery was identified. It was isolated and slung with an umbilical tape. It was given 8000units of heparin at that time. Ultrasound was then used to localize the left common femoral vein. The vein was patent and compressed easily. Under ultrasound guidance the left common femoral vein was punctured and the venous sheath was inserted. This was aspirated and flushed with heparinized saline. An ACT at that time was 268. Using micropuncture technique the common carotid artery was punctured. The micro sheath was inserted to 3 cm. Injection was then done showing the bifurcation. There was a significant lesion seen just beyond the origin of the internal carotid artery on the right side. We reinserted the micro wire and passed it into the external carotid. We then advanced the dilator and sheath into the external carotid. The dilater and sheath were removed. We then inserted the J-wire into the external carotid artery. The TCAR sheath was inserted. Once it was in place and held against the artery it was sutured to the chest wall and the incision edge. We then flushed the tubing appropriately. The venous return tubing was clamped onto the TCAR sheath. It was flushed through and then attached to the venous inflow sheath in the left groin. The sheath was checked for flow. The common carotid artery was then clamped. Flow through the venous return sheath was again checked and found to be adequate. We then inserted a 5 x 25 balloon backloaded on the wire. The wire was passed through the lesion into the petrous portion of the internal carotid. The 5 balloon was then advanced to the lesion. The lesion was then predilated with the 6 mm balloon. The balloon was removed. We then inserted the 10/8 x 40 stent. This was deployed across the lesion without difficulty. The catheter was removed. There appeared to be still some narrowing present in the midportion of the stent on the internal carotid. We then inserted a 6 x 35 balloon and postdilated this area. The carotid was allowed to go 2 minutes with flow reversal. We did another angiogram which showed no residual stenosis and a nicely seated stent.The wire was removed and the common carotid artery was unclamped. The venous return tubing was clamped and removed from the TCAR sheath. The blood was allowed to flow back into the venous system. The TCAR sheath was then removed and the 5-0 Prolene suture securely tied. Hemostasis was noted of the puncture site. The patient was given 25 mg of protamine. Another ACT was performed which was 125. The sheath was pulled from the groin and pressure was applied. Wound was irrigated with Ancef solution. Adequate hemostasis was obtained of the wound. Once this was noted the wound was closed in usual fashion using a 3-0 Vicryl suture for the subcutaneous layer and a 4-0 subcuticular Vicryl suture for the skin edges. Dermabond was used for dressing.The patient left the operation room in satisfactory condition and tolerated the procedure well. All needle and sponge counts were correct at the end of the procedure. Jazmin Em Pac assisted due to lack of resident availability and was necessary for positioning, draping, retraction, wound closure deep layers, sub cutaneous tissue, and skin closure and was necessary for assisting with the case. I attest to the content of the Intraoperative Record and any orders documented therein. Any exceptions are noted below.
[2024-04-28] MEDS: BUPIVACAINE/EPINEPHRINE 0.5% MPF 1:200,000 30 ML VIAL ONE (11:50)
[2024-04-28] MEDS ORDERED: PHENYLEPHRINE/NSS 25 MG/250 ML BAG IV PRN (13:36)
[2024-04-28] MEDS ORDERED: STAT IV Infusion **Titration per Protocol STA (13:36)
[2024-04-28] MEDS ORDERED: NON-FORMULARY MEDICATION (Sildenafil 50 mg tablet) PO PRN (13:36)
[2024-04-28] MEDS ORDERED: oxyCODONE/ACETAMINOPHEN 5mg/325mg TAB PO PRN (13:36)
[2024-04-28] MEDS ORDERED: Ativan IV Alcohol Withdrawal--Active Protocol IV PRN (13:39)
[2024-04-28] MEDS ORDERED: LORazepam 1 MG TAB PO PRN ×3 (13:39)
[2024-04-28] MEDS ORDERED: LORazepam 2 MG/1 ML VIAL IV PRN ×4 (13:39)
[2024-04-28] MEDS ORDERED: Ativan PO Alcohol Withdrawal--Active Protocol PO PRN (13:39)
--- NOTE | 2024-04-28 14:32 | Anesthesiology Progress Note ---
Date of Service April 28, 2024 Anesthesia Post Procedure Vital Signs Vital Signs: Temp Pulse Pulse Pulse Resp BP BP 04/28/24 14:00 37.0 C 04/28/24 13:46 90/56 L 04/28/24 13:46 90/56 L 04/28/24 13:36 61 14 04/28/24 13:36 36.7 C 04/28/24 13:33 66 12 04/28/24 13:31 100/64 04/28/24 13:31 100/64 04/28/24 13:27 59 L 16 04/28/24 13:19 04/28/24 13:18 63 17 04/28/24 13:15 107/61 04/28/24 13:15 107/61 04/28/24 13:00 36.7 C 72 20 111/69 04/28/24 12:40 36.8 C 73 14 107/65 04/28/24 12:30 79 15 105/63 04/28/24 12:20 89 20 106/63 04/28/24 12:10 36.5 C 84 18 126/71 04/28/24 08:49 147/84 H 04/28/24 08:38 04/28/24 08:38 36.8 C 71 16 BP Pulse Ox O2 Del Method 04/28/24 14:00 04/28/24 13:46 04/28/24 13:46 04/28/24 13:36 96 04/28/24 13:36 04/28/24 13:33 97 04/28/24 13:31 04/28/24 13:31 04/28/24 13:27 97 04/28/24 13:19 Room Air 04/28/24 13:18 96 04/28/24 13:15 04/28/24 13:15 04/28/24 13:00 96 Room Air 04/28/24 12:40 95 Room Air 04/28/24 12:30 93 Room Air 04/28/24 12:20 95 Room Air 04/28/24 12:10 98 Room Air 04/28/24 08:49 04/28/24 08:38 Room Air 04/28/24 08:38 144/80 H 97 Room Air Transfer of Care Handoff Completed per policy Notes Mental Status: alert / awake / arousable and participated in evaluation Nausea / Vomiting: adequately controlled Pain: adequately controlled Airway Patency, RR, SpO2: stable & adequate BP & HR: stable & adequate Hydration State: stable & adequate Anesthetic Complications: no major complications apparent and Pt Satisfied with anesthetic care
--- NOTE | 2024-04-28 15:42 | Critical Care Consultation ---
Date of Consultation April 28, 2024 Assessment & Plan (1) Alveolar emphysema of lung: (2) Alcohol abuse: (3) Carotid artery stenosis: (4) Tobacco abuse: (5) Multiple pulmonary nodules: Plan CT chest 01/23/2024 personally reviewed: Bilateral apical pleural scarring Minimal centrilobular emphysema appreciated bilaterally 4 mm right lower lobe pulmonary nodule, 2 mm left upper lobe pulmonary nodule No significant mediastinal lymphadenopathy -- Carotid artery stenosis S/p right-sided TCAR on 04/28/[address] Moreno Continue with neurochecks as per protocol -- COPD with emphysema and active smoker [id number] smoking history Currently smoking a pack a day Would recommend outpatient pulmonary follow-up -- Pulmonary nodule Largest being 4 mm right lower lobe Continue with yearly screening CAT scan which will be January 2025 --History of alcohol use Drinks 6 packs on a daily basis --Prophylaxis VTE: None GI: None Lines: Right radial, peripheral Diet: Cardiac Plan: Strict in and out Continue with neurochecks Monitor for signs of bleeding Pain management Patient is drinking 6 packs on a daily basis, will put him on CIWA protocol. Perioperative antibiotics as per vascular surgery Please note the above document was generated using voice recognition software. It may contain grammatical, syntax or spelling errors.Any formal questions or concerns about the content, text or information contained within the body of this dictation should be directly addressed to the provider for clarification. History of Present Illness Attending Physician: Sandro Moreno MD History of Present Illness 63-year-old male presents to the hospital to have right-sided carotid endarterectomy done Past medical history: COPD, dyslipidemia Was transferred to the ICU for further care At the time of examination patient was saturating well on room air He was not in any respiratory distress His systolic blood pressure was in the 120s with heart rate in the mid 60s He complained of some soreness at the site of the tube. Denied any soreness in the throat No unusual headache or blurry vision Denied any weakness Social history: [id number] smoking history, currently smoking a pack a day. Is into [employer] Drinks 6 pack alcohol on a daily basis Allergies Allergy/AdvReac Type Severity Reaction Status Date / Time No Known Allergies Allergy Verified 04/28/24 08:32 Home Medications Medication Instructions Recorded Confirmed Type guaifenesin 600 mg tablet, 600 mg PO Q12H PRN Congestion, 08/13/22 04/28/24 History extended release 12 hr (Mucinex) Cough sildenafil 50 mg tablet 50 mg PO DAILY PRN sexual activity 02/19/24 04/28/24 Rx #10 tabs aspirin 81 mg tablet 81 mg PO HS 04/07/24 04/28/24 History atorvastatin 10 mg tablet (Lipitor) 10 mg PO HS 04/07/24 04/28/24 History clopidogrel 75 mg tablet (Plavix) 75 mg PO HS 04/07/24 04/28/24 History albuterol sulfate 90 mcg/actuation 1 inh inhalation QID PRN Shortness 04/22/24 04/28/24 Rx aerosol inhaler of Breath and Wheezing #6.7 grams Patient History Medical History (Updated 04/28/24 @ 15:50 by Capo Stewart MD, [facility]) Carotid artery stenosis Soft Tissue Neck CT 03/10/24 [facility]= Severe (80%) stenosis of the proximal right internal carotid artery due to calcified atherosclerotic plaque. Mild plaque within the proximal left internal carotid artery without significant stenosis. Prediabetes History of prostate cancer 2019 - surgery only - no chemo/xrt Glaucoma not currently dx'd - being monitored twice a year d/t family history Hiatal hernia pt denies Acid reflux mild- no recent issues Asthma stable-inh prn Esophageal thickening pt denies - per records Surgical History Hx of prostatectomy (2019) robotic removal w/ rt inguinal hernia repair History of left inguinal hernia repair History of esophagogastroduodenoscopy (EGD) (2018) History of colonoscopy (2021) Family History Father Prostate cancer Colorectal cancer Family history of reaction to anesthesia father had stroke during surgery Mother Glaucoma Brother Heart disease Denies family history of Ovarian cancer Myocardial infarction Breast cancer Social History Smoking Status: Current every day smoker Tobacco Type: Cigarettes Age Started Using Tobacco: 19; packs per day: 1; Cigarettes Per Day: 1 1/2 pack; Second Hand Exposure: No; Do You Dip or Chew Tobacco: No; Tobacco Cessation Education Requested by Patient: No Hx Alcohol Use: Yes Alcohol type: beer Hx Substance Use: No Preferred Language: Azeri Communication Ability: Effective Visual Impairment: No Limitations Hearing Ability: Normal Cutter Down Required: No Beliefs That Will Affect Care: None marital status: Single Current Living Situation: Alone current occupational status: employed current occupation: [employer] Other Information That Helps Us Care for You: No Feels Safe at Home: Yes Safety Concerns: Feels Safe At This Time Childhood Exposure to Second-Hand Smoke: Yes Dental Care, Regularly: Yes Physical Activity Frequency: Daily Seatbelt Use: always Sunscreen Use: No Assistive Devices: Glasses Review of Systems Review of Systems: All systems reviewed & are unremarkable except as noted in HPI & below Physical Exam Physical Exam: Constitutional: No acute distress HEENT: EOMI, PERRLA Respiratory system: Good air entry bilaterally, no wheeze, no rhonchi, no crackles CVS: S1-S2 positive, no murmurs or gallops Abdomen: Soft, nontender, nondistended, positive bowel sounds x4 Extremities: +2 pulses bilaterally radialis/ dorsalis pedis, no cyanosis, no edema Neuro: Awake alert oriented x3, cranial nerves II to XII grossly intact Psych: Normal mood and affect G/U: No Bauer Skin: no rashes, warm and dry Lymphatic: no cervical or axillary lymphadenopathy Results & Data Results & Data Vital Signs (Past 12 Hours) Vital Signs Temp Pulse Pulse Pulse Resp BP BP 04/28/24 15:03 77 22 04/28/24 15:02 108/60 04/28/24 15:02 108/60 04/28/24 15:02 108/60 04/28/24 15:02 108/60 04/28/24 14:57 81 21 04/28/24 14:36 77 19 04/28/24 14:30 100/58 L 04/28/24 14:27 79 24 04/28/24 14:09 76 17 04/28/24 14:00 96/56 L 04/28/24 14:00 37.0 C 04/28/24 13:57 61 16 04/28/24 13:46 90/56 L 04/28/24 13:46 90/56 L 04/28/24 13:36 61 14 04/28/24 13:36 36.7 C 04/28/24 13:33 66 12 04/28/24 13:31 100/64 04/28/24 13:31 100/64 04/28/24 13:27 59 L 16 04/28/24 13:19 04/28/24 13:18 63 17 04/28/24 13:15 107/61 04/28/24 13:15 107/61 04/28/24 13:00 36.7 C 72 20 111/69 04/28/24 12:40 36.8 C 73 14 107/65 04/28/24 12:30 79 15 105/63 04/28/24 12:20 89 20 106/63 04/28/24 12:10 36.5 C 84 18 126/71 04/28/24 08:49 147/84 H 04/28/24 08:38 04/28/24 08:38 36.8 C 71 16 BP Pulse Ox O2 Del Method 04/28/24 15:03 99 04/28/24 15:02 04/28/24 15:02 04/28/24 15:02 04/28/24 15:02 04/28/24 14:57 100 04/28/24 14:36 99 04/28/24 14:30 04/28/24 14:27 95 04/28/24 14:09 91 04/28/24 14:00 04/28/24 14:00 04/28/24 13:57 97 04/28/24 13:46 04/28/24 13:46 04/28/24 13:36 96 04/28/24 13:36 04/28/24 13:33 97 04/28/24 13:31 04/28/24 13:31 04/28/24 13:27 97 04/28/24 13:19 Room Air 04/28/24 13:18 96 04/28/24 13:15 04/28/24 13:15 04/28/24 13:00 96 Room Air 04/28/24 12:40 95 Room Air 04/28/24 12:30 93 Room Air 04/28/24 12:20 95 Room Air 04/28/24 12:10 98 Room Air 04/28/24 08:49 04/28/24 08:38 Room Air 04/28/24 08:38 144/80 H 97 Room Air Coding Level of Care Code 16339 INT INP/OBS CARE 3/75MIN Diagnoses Alveolar emphysema of lung J43.1 Alcohol abuse F10.10 Carotid artery stenosis I65.29 Tobacco abuse Z72.0 Multiple pulmonary nodules R91.8
[2024-04-28] MEDS: ASPIRIN 81 MG ECTAB PO SCH (20:17)
[2024-04-28] MEDS: ATORVASTATIN 10 MG TAB PO SCH (20:17)
[2024-04-28] MEDS: CLOPIDOGREL BISULFATE 75 MG TAB PO SCH (20:17)
[2024-04-29 04:06] VITALS: TEMP 98.2
[2024-04-29] MEDS: guaiFENesin 600 MG TABCR PO PRN (08:52)
--- NOTE | 2024-04-29 09:07 | Critical Care Progress Note ---
Date of Service April 29, 2024 Assessment & Plan (1) Alveolar emphysema of lung: (2) Alcohol abuse: (3) Carotid artery stenosis: (4) Tobacco abuse: (5) Multiple pulmonary nodules: Plan CT chest 01/23/2024 personally reviewed: Bilateral apical pleural scarring Minimal centrilobular emphysema appreciated bilaterally 4 mm right lower lobe pulmonary nodule, 2 mm left upper lobe pulmonary nodule No significant mediastinal lymphadenopathy -- Carotid artery stenosis S/p right-sided TCAR on 04/28/[address] Moreno Continue with neurochecks as per protocol -- COPD with emphysema and active smoker [id number] smoking history Currently smoking a pack a day Would recommend outpatient pulmonary follow-up -- Pulmonary nodule Largest being 4 mm right lower lobe Continue with yearly screening CAT scan which will be January 2025 --History of alcohol use Drinks 6 packs on a daily basis --Prophylaxis VTE: None GI: None Lines: Right radial, peripheral Diet: Cardiac Plan: In/out: +1255, urine output 1885 Continue with CIWA protocol while the patient is in the hospital Disposition as per vascular surgery Please note the above document was generated using voice recognition software. It may contain grammatical, syntax or spelling errors.Any formal questions or concerns about the content, text or information contained within the body of this dictation should be directly addressed to the provider for clarification. Admission and Anticipated Discharge Date Admission Date: April 28, 2024 Subjective Patient seen and examined at bedside. No acute distress, no adverse events ove rnight Denied any blurry vision No sore throat. No difficulty swallowing Fair appetite, no nausea or vomiting No focal deficit Review of Systems Review of Systems: All systems reviewed & are unremarkable except as noted in Subjective Physical Exam Physical Exam: Constitutional: No acute distress HEENT: EOMI, PERRLA Respiratory system: Good air entry bilaterally, no wheeze, no rhonchi, no crackles CVS: S1-S2 positive, no murmurs or gallops Abdomen: Soft, nontender, nondistended, positive bowel sounds x4 Extremities: +2 pulses bilaterally radialis/ dorsalis pedis, no cyanosis, no edema Neuro: Awake alert oriented x3, cranial nerves II to XII grossly intact Psych: Normal mood and affect G/U: No Bauer Skin: no rashes, warm and dry Lymphatic: no cervical or axillary lymphadenopathy Results & Data Results & Data Vital Signs (Past 12 Hours) Vital Signs Temp Pulse Resp BP BP Pulse Ox 04/29/24 06:00 52 L 17 04/29/24 05:03 52 L 19 93 04/29/24 04:57 52 L 16 93 04/29/24 04:00 57 L 105/59 L 04/29/24 03:57 53 L 16 91 04/29/24 03:00 36.8 C 04/29/24 03:00 105/62 04/29/24 03:00 52 L 15 94 04/29/24 02:24 55 L 17 92 04/29/24 01:03 55 L 14 94 04/29/24 01:00 100/49 L 04/29/24 00:06 52 L 18 94 04/29/24 00:00 53 L 04/28/24 23:09 52 L 16 96 04/28/24 23:01 102/66 04/28/24 22:54 55 L 18 96 04/28/24 22:51 63 20 95 04/28/24 22:03 67 19 95 04/28/24 21:57 56 L 20 95 04/28/24 21:16 128/67 Coding Level of Care Code 77495 SUB INP/OBS CARE 03/27MIN Diagnoses Alveolar emphysema of lung J43.1 Alcohol abuse F10.10 Carotid artery stenosis I65.29 Tobacco abuse Z72.0 Multiple pulmonary nodules R91.8
[2024-04-29] MEDS: ALBUTEROL HFA 8 GM INHALER INH PRN (09:09)
[2024-04-29 09:10] VITALS: RESP 18
[2024-04-29 10:23] VITALS: O2SAT 95
--- NOTE | 2024-04-29 12:55 | Surgery Progress Note ---
Date of Service April 29, 2024 Assessment & Plan (1) S/P vascular surgery: Plan: Patient doing well post right tcar. He is doing well. Will d\c today. Admission and Anticipated Discharge Date Admission Date: April 28, 2024 Subjective Patient without complaint. Denies any focal deficits. Ambulated without difficulty. Physical Exam Constitutional: WD/WN, vitals as above Neck: trachea midline Respiratory: normal respiratory effort; no respiratory distress Cardiovascular: Rate/Rhythm: regular rate and regular rhythm Skin: + incision (dry and clean) Neurologic: CN's II-XI intact bilaterally, normal sensation to monofilament and moves all extremities Psychiatric: A+Ox3, euthymic affect Results & Data Vital Signs (Past 12 Hours) Vital Signs Temp Pulse Pulse Resp BP Pulse Ox O2 Del Method 04/29/24 10:00 69 18 95 04/29/24 10:00 121/69 04/29/24 10:00 121/69 04/29/24 09:10 65 18 93 Room Air 04/29/24 09:00 74 21 93 04/29/24 08:27 106 H 30 H 96 04/29/24 08:00 107/56 L 04/29/24 08:00 107/56 L 04/29/24 08:00 107/56 L 04/29/24 07:54 73 15 92 04/29/24 06:00 52 L 17 04/29/24 05:03 52 L 19 93 04/29/24 04:57 52 L 16 93 04/29/24 04:00 57 L 105/59 L 04/29/24 03:57 53 L 16 91 04/29/24 03:00 36.8 C 04/29/24 03:00 105/62 04/29/24 03:00 52 L 15 94 04/29/24 02:24 55 L 17 92 04/29/24 01:03 55 L 14 94 04/29/24 01:00 100/49 L
--- NOTE | 2024-04-29 13:02 | Discharge Summary ---
Date of Service April 29, 2024 Admission HPI Per Admitting Provider Name: REBECA VIEIRA Patient Number: [id number] : 1960 Date of Service: 04/01/2024 Chief Complaint: _consultation for carotid stenosis HPI: _Mr. Vieira is a middle-age male presents to Dr. Moreno's vascular surgery clinic today as a new patient in consultation for right ICA stenosis that was noted on recent imaging. Patient states that he had been complaining of some left-sided neck pain, and his primary doctor sent him for CT imaging of the neck to evaluate and found a narrowing in his right ICA. Patient denies any symptoms of cerebrovascular deficiency including amaurosis, unilateral extremity weakness numbness tingling, difficulty speaking or swallowing, facial droop, sudden onset confusion. He also denies headache, fever, chest pain, shortness of breath, abdominal pain, nausea, vomiting, rest pain, claudication, nonhealing wounds or ulcerations, other complaints. Review of symptoms: A total of 14 systems were reviewed and are negative aside from what is related in his HPI Imaging: Patient did have a CT of the neck with and without contrast which does demonstrate about 95% stenosis of his right ICA Current Home Meds: (Last Updated 04/01 12:38) aspirin (aspirin 81 mg oral delayed release tablet) 81 mg PO Daily atorvastatin (atorvastatin 10 mg oral tablet) TAKE 1 TABLET BY MOUTH ONCE DAILY clopidogrel (Plavix 75 mg oral tablet) 75 mg PO Daily sildenafil (sildenafil 50 mg oral tablet) TAKE 1 TABLET BY MOUTH DAILY NEEDED FOR SEXUAL ACTIVITY Allergies and Sensitivities: NKA Past Medical History: Problems: Carotid stenosis, right Tobacco user Anemia Inguinal hernia Prostate cancer Internal hemorrhoids Diverticulosis Allergic rhinitis Alcohol abuse Surgical history positive for a prostatectomy, left inguinal hernia repair, EGD, colonoscopy Family history: Positive for prostate and colorectal cancer in his father, positive for glaucoma in his mother, positive for coronary disease in his brother Social history: Patient is a current smoker, smoking 1.5 packs/day since the age of 19. He drinks 6 beers per day. He denies any illicit drug use. OBJECTIVE Vitals: Last Updated 04/01/24 12:10 Date Temp BP Location Pulse RR SpO2 Pain 04/01/24 164/80 Right Arm 04/01/24 160/84 Left Arm 75 98 01/30/25 0 Vital Signs are the last 3 documented. No Orthostatic Data Available No Height/Weight Data Available Physical Exam Constitutional: In general patient is a healthy-appearing well-nourished well- developed middle-age male no distress. Is alert and oriented and able deficits. Head is cephalic and atraumatic. Trachea is midline. Carotids no demonstrated bruit. Heart is regular, lungs are decreased lightly but clear. Abdomen is soft nontender with erected bowel sounds in upper quadrants. Radial and brachial pulses are +3. Femoral pulses are +3. Lower extremity distal pulses are +2. He has brisk capillary refill and no sign of distal ischemia. ASSESSMENT: _ PLAN: _ 1 ) _right ICA stenosis Patient does appear to have a severe asymptomatic right ICA stenosis noted on recent imaging. Due to the severity of his stenosis and significant risk of CVA, we did recommend that the patient consider undergoing surgical intervention. The options of carotid endarterectomy versus transcarotid artery revascularization were discussed at length with the patient by myself. Patient elects to proceed with a right TCAR procedure. The procedure, benefits, alternatives were discussed with the patient by myself. The risks of the surgery including but not limited to bleeding, infection, nerve damage, CVA, heart attack, , were discussed with the patient by myself at Dr. Moreno's request. Patient expresses understanding and agreement to proceed. Patient is already taking atorvastatin and 81 mg aspirin daily, we will add Plavix to his regimen in preparation for his upcoming procedure. He is aware that he will require this for at least 1 year postoperatively. He was advised to call any questions or concerns. This will be scheduled in the next few weeks at the patient's convenience. Thank you for letting us participate in the care of this patient. I have personally spent_50__ minutes performing [id number] and [id number] activities on this date of service.Time does not include separately reported services. Activities Include: x__ review of the medical record _x_ obtaining a history _x_ physical exam/evaluation __ review labs _x_ review radiology reports x__ counseling/educating patient/family/caregiver __ discussion/referral to other healthcare professional _x_ documenting care in the medical record __ independent interpretation of results x__ communication of results to patient/family/caregiver x__ coordination of care Signature Line Electronic Signature on File CC: Cristino Rod MD [facility] [address] [facility] [address] * Electronically Reviewed/Signed by: Jazmin Em PA-C Author Signature Dt/Tm:04/01/2024 04:[address] [facility] [place] [address], [address] [place] [address] LM Result Type: HVI Outpt Note Date of Service: April 01, 2024 16:14 EST Authorization Status: Final Author or Import Date: ANISHA Em Lynn on April 01, 2024 16:24 EST Verified By: ANISHA Em Lynn on April 01, 2024 16:24 EST Encounter info: [id number], [facility], Clinic, 04/01/2024 - 04/01/2024 Admission Exam Per Admitting Provider Constitutional: In general patient is a healthy-appearing well-nourished well- developed middle-age male no distress. Is alert and oriented and able deficits. Head is cephalic and atraumatic. Trachea is midline. Carotids no demonstrated bruit. Heart is regular, lungs are decreased lightly but clear. Abdomen is soft nontender with erected bowel sounds in upper quadrants. Radial and brachial pulses are +3. Femoral pulses are +3. Lower extremity distal pulses are +2. He has brisk capillary refill and no sign of distal ischemia. Principal Diagnosis Right internal carotid artery stenosis Discharge Exam Constitutional WD/WN, vitals as above Neck trachea midline Respiratory normal respiratory effort; no respiratory distress Cardiovascular Rate/Rhythm: regular rate and regular rhythm Skin + incision (dry and clean) Neurologic CN's II-XI intact bilaterally, normal sensation to monofilament and moves all extremities Psychiatric A+Ox3, euthymic affect Discharge Data Allergies Allergy/AdvReac Type Severity Reaction Status Date / Time No Known Allergies Allergy Verified 04/28/24 08:32 Consultations 04/28/24 13:36 Consult Java Sybase Developer Routine Procedures Performed Operation Date: 04/28/24 10:10 Actual Procedures p Right Transcarotid Artery Revascularization, Ultrasound localization of Right common femoral vein(Right) - Sandro Moreno MD Ordered Studies 02/26/25 07:13 EV angio carotid cerv RT Routine US EV guide vascular access Routine Hospital Course (1) S/P vascular surgery: Patient doing well post right tcar. He is doing well. Will d\c today. Total Time Total Time Spent Total Time Spent (In Minutes): x Discharge Plan Discharge Items Patient Disposition: Home - Self-Care Reason For Visit: Right Iliac Carotid Artery Stenosis Discharge Diagnosis: Right internal carotid artery stenosis Activity: Per Instructions section Non-emergency contact: Surgeon Call non-emergency contact if: your temperature is above 101.5, your wound has increased redness, your wound has increased drainage and your wound pain has increased Follow-up/Referrals: Cristino Rod MD [Primary Care Provider] - Diet: Heart Healthy Addtl Attending Provider Instructions: SPECIAL CARE INSTRUCTIONS: Diet: * You may return to previous diet. Medications: * Continue to take Aspirin, plavix, and statin as directed. Incision Care: * You may shower, but do not rub incision. You may let the warm soapy water run over it. Be sure to dry the incision well after bathing. * Do not shave directly over the incision until it is healed. * DO NOT IMMERSE THE INCISION IN A TUB/POOL/etc. UNTIL HEALED. Restrictions: * Do not drive for at least one week or if you are still taking any narcotic pain medication. * Do not lift anything heavier than a gallon of milk for one week after going home. Possible Complications: * Numbness - It is normal to have some numbness around the incision. Numbness can extend beyond the incision to areas of the neck, ear and face. The numbness is due to bruising of nerves during the surgery and will gradually improve over a period of months. * Hoarseness/Difficulty Speaking and Swallowing - The bruising of nerves in the neck can also cause a hoarse voice, difficulty speaking or swallowing. This may improve over time, HOWEVER, if it continues for more than a few days please contact our office ([phone]). * Excessive Swelling - There will be some swelling immediately after surgery which usually resolves within one week. If you notice that the swelling is getting worse, notify your surgeon ([phone]). * Drainage/Bleeding - If there is any drainage or bleeding, it should be a very small amount (less than a teaspoon per day). If you have excessive bleeding or drainage from the incision, call your surgeon ([phone]) right away. ACTIVATION OF EMERGENCY MEDICAL SYSTEM: Call 911, immediately, if you experience any of the following: Warning Signs and Symptoms of Stroke: * Sudden numbness or weakness of the face, arm or leg, especially on one side of the body * Sudden confusion, trouble speaking or understanding * Sudden trouble seeing in one or both eyes * Sudden trouble walking, dizziness, loss of balance or coordination * Sudden severe headache with no cause Do not delay calling 911 if you experience any warning signs or symptoms of a stroke. Delay in seeking medical attention may affect what treatments can be given to you. Risk Factors for Stroke: You can reduce your chances of stroke by working with your medical provider to adopt a healthy lifestyle. Some specific ways to lower your chance of stroke are: * If you are a smoker, now is the time to stop smoking cigarettes * If you are diabetic, improve the control of your blood sugars * Avoid excessive amounts of alcohol * Control high blood pressure * Lose weight if you are overweight * Be sure to lead an active lifestyle * Eat a healthy diet low in salt, cholesterol and fat You should know about other risk factors for stroke that you are unable to control. These include: * Age 55 years or older * Male gender * Certain racial groups: , or / * Family History of Stroke, Mini stroke or Heart Attack * Sickle Cell Disease You will be receiving a call from the Vascular Surgery Nurse after you are discharged. FOLLOW UP VISIT: It is important for you to keep your follow up appointments with your medical provider. Keep any scheduled doctor appointments Call [phone] to schedule a follow up appointment if one not already scheduled.. Pending Studies at Discharge: No Stand-Alone Forms: [facility] Sm[facility] Cessation Medications and DC Order Prescriptions: Continued albuterol sulfate 90 mcg/actuation HFA aerosol inhaler 1 inh inhalation QID PRN (Reason: Shortness of Breath and Wheezing) Qty: 6.7 1RF sildenafil 50 mg tablet 50 mg PO DAILY PRN (Reason: sexual activity) Qty: 10 3RF guaifenesin [Mucinex] 600 mg tablet extended release 12hr 600 mg PO Q12H PRN (Reason: Congestion, Cough) clopidogrel [Plavix] 75 mg Tablet 75 mg PO HS aspirin 81 mg Tablet 81 mg PO HS atorvastatin [Lipitor] 10 mg tablet 10 mg PO HS Discharge Orders: Discharge Order (Routine); Ordered 04/29/24 Ordered By: Sandro Moreno Admission Data Admit Date/Time: 04/28/24 09:47 Attending Provider: Sandro Moreno Admit Provider: Sandro Moreno Primary Care Provider: Cristino Rod Other Providers: Leon Chaney; Kishor Rain; Sancho Ames; Bridger Cason; Capo Stewart; Epifanio Pearson; Gricel Watts
[2024-04-29 14:51] VITALS: BP 116/63; PULSE 68
== END 2024-04-29 14:45 | disposition home or self-care (01) | DRG 36 ==
LOC: ASU 07:43 → 1E 09:47
PROC: EV.TCAR (2024-04-28 10:10)